=== PATIENT | female | born 2000 | race Caucasian/White ===

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

== ENCOUNTER 2022-01-14 08:34 | Emergency (ER) | payer BC, OTHER ==
[~2022-01-14] VITALS: Ht 157.5 cm; Wt 78.0 kg
[2022-01-14] MEDS ORDERED: TRAZ-252 (09:10)
[2022-01-14] MEDS ORDERED: ONDA4TAB6 (09:10)
[2022-01-14] MEDS ORDERED: PRAZ1CAP (09:10)
[2022-01-14] MEDS ORDERED: LEXA1TAB (09:10)
[2022-01-14 10:09] LABS: BASO # 0.1 10^3/uL (0.0-0.2); BASO % 0.7 % (0.0-1.0); EOS # 0.1 10^3/uL (0.0-0.5); EOS % 1.7 % (0.0-3.0); HEMATOCRIT 45.1 % (36.0-47.0); LYMPH # 1.8 10^3/uL (1.5-5.0); LYMPH % 26.8 % (24.0-44.0); MEAN CORPUSCULAR HEMOGLOBIN 29.6 pg (27.0-33.0); MEAN CORPUSCULAR HGB CONC 33.3 g/dl (32.0-36.5); MONO # 0.6 10^3/uL (0.0-0.8); MONO % 8.2 % (2.0-8.0); NEUTROPHILS # 4.3 10^3/uL (1.5-8.5); NEUTROPHILS % 62.3 % (36.0-66.0); PLATELET COUNT, AUTOMATED 292 10^3/uL (150-450); RED BLOOD COUNT 5.07 10^6/uL (4.00-5.40); WHITE BLOOD COUNT 6.9 10^3/uL (4.0-10.0)
[2022-01-14 10:53] LABS: ALBUMIN 4.1 GM/DL (3.2-5.2); ALT/SGPT 21 U/L (12-78); BILIRUBIN,DIRECT 0.2 MG/DL (0.0-0.2); BILIRUBIN,TOTAL 0.5 MG/DL (0.2-1.0); BLOOD UREA NITROGEN 13 MG/DL (7-18); CALCIUM LEVEL 9.3 MG/DL (8.5-10.1); CARBON DIOXIDE LEVEL 25 MEQ/L (21-32); CHLORIDE LEVEL 109 MEQ/L (98-107); CREATININE FOR GFR 0.67 MG/DL (0.55-1.30); GLUCOSE, FASTING 81 MG/DL (70-100); LIPASE 98 U/L (73-393); POTASSIUM SERUM 4.4 MEQ/L (3.5-5.1); SODIUM LEVEL 141 MEQ/L (136-145); TOTAL PROTEIN 7.4 GM/DL (6.4-8.2)
[2022-01-14] MEDS ORDERED: ONDANSETRON 4MG ORAL DISINTEGRATING TAB SL PRN (12:00)
[2022-01-14 13:06] VITALS: BP 120/73
[2022-01-14] MEDS ORDERED: ONDA4TAB6 PO (13:30)
== END 2022-01-14 13:55 | disposition home or self-care (01) ==
LOC: M ED 08:34
DX: R11.2 Nausea with vomiting, unspecified (principal); R19.7 Diarrhea, unspecified; Z88.0 Allergy status to penicillin

== ENCOUNTER → 2022-03-05 | Outpatient (REF) | payer BC, OTHER ==
[~2022-03-05] MED LIST: LEXA1TAB; ONDA4TAB6; ONDA4TAB6 PO; PRAZ1CAP; TRAZ-252
== END ==
LOC: M LAB REF 16:21
PROVIDERS: ATTEND Nurse Practitioner Family
DX: J02.9 Acute pharyngitis, unspecified (principal)

== ENCOUNTER 2022-05-13 11:14 | Emergency (ER) | payer BC, OTHER ==
[~2022-05-13] VITALS: Ht 157.5 cm; Wt 71.8 kg
[2022-05-13 11:14] VITALS: BP 134/86
[~2022-05-13 11:14] MED LIST changes: -PRAZ1CAP; +PRAZ1CAP PO; -TRAZ-252; +TRAZ-252 PO
[2022-05-13] MEDS ORDERED: SERT50TA29 (11:19)
[2022-05-13 13:25] LABS: BASO % 0.6 % (0.0-1.0); EOS # 0.1 10^3/uL (0.0-0.5); EOS % 1.6 % (0.0-3.0); HEMOGLOBIN 14.3 g/dl (12.0-15.5); LYMPH % 39.5 % (24.0-44.0); MEAN CORPUSCULAR HEMOGLOBIN 29.5 pg (27.0-33.0); MEAN CORPUSCULAR HGB CONC 32.5 g/dl (32.0-36.5); MEAN CORPUSCULAR VOLUME 90.9 fl (80.0-96.0); MONO # 0.5 10^3/uL (0.0-0.8); MONO % 8.8 % (2.0-8.0); NEUTROPHILS # 2.5 10^3/uL (1.5-8.5); NEUTROPHILS % 49.3 % (36.0-66.0); PLATELET COUNT, AUTOMATED 265 10^3/uL (150-450); RED BLOOD COUNT 4.84 10^6/uL (4.00-5.40); WHITE BLOOD COUNT 5.1 10^3/uL (4.0-10.0)
[2022-05-13 13:50] LABS: ALBUMIN 3.8 GM/DL (3.2-5.2); ALT/SGPT 19 U/L (12-78); BILIRUBIN,DIRECT 0.1 MG/DL (0.0-0.2); BILIRUBIN,TOTAL 0.6 MG/DL (0.2-1.0); BLOOD UREA NITROGEN 9 MG/DL (7-18); CALCIUM LEVEL 8.9 MG/DL (8.5-10.1); CARBON DIOXIDE LEVEL 26 MEQ/L (21-32); CHLORIDE LEVEL 108 MEQ/L (98-107); GLUCOSE, FASTING 84 MG/DL (70-100); LIPASE 109 U/L (73-393); POTASSIUM SERUM 4.3 MEQ/L (3.5-5.1); SODIUM LEVEL 140 MEQ/L (136-145); TOTAL PROTEIN 6.7 GM/DL (6.4-8.2)
[2022-05-13] MEDS ORDERED: ISOVUE-370 76% 100ML VIAL As Ordered ONE (15:12)
[2022-05-13] MEDS ORDERED: KETOROLAC 30 MG/ML 1ML VIAL IV ONE (15:35)
[2022-05-13 16:07] LABS: GC DNA AMPLIFICATION NEGATIVE (NEGATIVE)
[2022-05-13] MEDS ORDERED: IBUP-1022 PO (16:07)
[2022-05-13] MEDS ORDERED: VITAD1000T PO (16:07)
[2022-05-13] MEDS ORDERED: SERT25TA21 PO (16:07)
[2022-05-13] MEDS ORDERED: HOME MED LIST COMPLETE! XX SCH (16:10)
== END 2022-05-13 16:44 | disposition home or self-care (01) ==
LOC: M ED 11:14
DX: N83.291 Other ovarian cyst, right side (principal); Z88.0 Allergy status to penicillin
CPT/HCPCS: 74177; 76830; 76856; 80048; 80076; 81002; 83690; 84702; 85025; 87661; 87810; 87850; 93976; 96374; 99283; J1885

== ENCOUNTER 2022-06-02 18:39 | Emergency (ER) | payer BC, OTHER ==
[~2022-06-02] VITALS: Ht 157.5 cm; Wt 71.8 kg
[~2022-06-02 18:39] MED LIST changes: +IBUP-1022 PO; +SERT25TA21 PO; +SERT50TA29; +VITAD1000T PO
[2022-06-02 19:31] LABS: BASO % 0.5 % (0.0-1.0); EOS # 0.1 10^3/uL (0.0-0.5); EOS % 1.3 % (0.0-3.0); HEMATOCRIT 43.1 % (36.0-47.0); HEMOGLOBIN 14.2 g/dl (12.0-15.5); LYMPH # 1.8 10^3/uL (1.5-5.0); MEAN CORPUSCULAR HEMOGLOBIN 29.6 pg (27.0-33.0); MEAN CORPUSCULAR HGB CONC 32.9 g/dl (32.0-36.5); MONO # 0.5 10^3/uL (0.0-0.8); MONO % 7.1 % (2.0-8.0); NEUTROPHILS # 5.1 10^3/uL (1.5-8.5); NEUTROPHILS % 66.8 % (36.0-66.0); PLATELET COUNT, AUTOMATED 276 10^3/uL (150-450); RED BLOOD COUNT 4.79 10^6/uL (4.00-5.40); WHITE BLOOD COUNT 7.6 10^3/uL (4.0-10.0)
[2022-06-02 19:59] LABS: ALT/SGPT 10 U/L (7.0-40); BILIRUBIN,DIRECT < 0.1 MG/DL (<0.4); BILIRUBIN,TOTAL 0.4 MG/DL (0.3-1.2); BLOOD UREA NITROGEN 11 MG/DL (9-23); CALCIUM LEVEL 9.2 MG/DL (8.5-10.1); CARBON DIOXIDE LEVEL 25 MMOL/L (20-31); CHLORIDE LEVEL 105 MMOL/L (98-107); CREATININE FOR GFR 0.87 MG/DL (0.55-1.30); GLUCOSE, FASTING 89 MG/DL (60-100); LIPASE 32 U/L (12-53); POTASSIUM SERUM 4.5 MMOL/L (3.5-5.1); SODIUM LEVEL 139 MMOL/L (136-145)
[2022-06-03] MEDS ORDERED: GI COCKTAIL 50ML BTL(HYOSCYAMINE/MAALOX/LIDOCAINE VISCOUS)(1:3:1) PO ONE (02:45)
[2022-06-03 02:57] LABS: HCG, SERUM QUALITATIVE NEGATIVE (NEGATIVE)
[2022-06-03] MEDS ORDERED: MIRA3350 PO (04:24)
[2022-06-03 04:29] VITALS: BP 120/72
== END 2022-06-03 04:36 | disposition home or self-care (01) ==
LOC: M ED 18:39
DX: K59.00 Constipation, unspecified (principal); F32.A Depression, unspecified; Z79.899 Other long term (current) drug therapy; Z88.0 Allergy status to penicillin

== ENCOUNTER 2022-08-05 23:16 | Emergency (ER) | payer BC, OTHER, SELFPAY ==
[~2022-08-05] VITALS: Ht 157.5 cm; Wt 71.5 kg
[~2022-08-05 23:16] MED LIST changes: +MIRA3350 PO
[2022-08-05 23:20] VITALS: BP 127/87
== END 2022-08-06 03:46 | disposition left against medical advice (07) ==
LOC: M ED 23:16
DX: Z53.21 Procedure and treatment not carried out due to patient leaving prior to being seen by health care provider (principal)

== ENCOUNTER 2022-11-27 00:29 | Emergency (ER) | payer BC, OTHER ==
[~2022-11-27] VITALS: Ht 157.5 cm; Wt 70.9 kg
[2022-11-27] MEDS ORDERED: NS 1,000 ML IV ONE (07:50)
[2022-11-27] MEDS ORDERED: ONDANSETRON 4MG 2ML VIAL IV ONE (07:50)
[2022-11-27] MEDS ORDERED: KETOROLAC 30 MG/ML 1ML VIAL IV ONE (07:50)
[2022-11-27 08:55] LABS: BASO % 0.2 % (0.0-1.0); EOS % 0.1 % (0.0-3.0); HEMATOCRIT 43.1 % (36.0-47.0); HEMOGLOBIN 14.6 g/dl (12.0-15.5); LYMPH # 0.5 10^3/uL (1.5-5.0); LYMPH % 4.8 % (24.0-44.0); MEAN CORPUSCULAR HEMOGLOBIN 30.5 pg (27.0-33.0); MEAN CORPUSCULAR HGB CONC 33.9 g/dl (32.0-36.5); MEAN CORPUSCULAR VOLUME 90.2 fl (80.0-96.0); MONO # 0.5 10^3/uL (0.0-0.8); MONO % 5.2 % (2.0-8.0); NEUTROPHILS # 8.9 10^3/uL (1.5-8.5); NEUTROPHILS % 89.4 % (36.0-66.0); PLATELET COUNT, AUTOMATED 269 10^3/uL (150-450); RED BLOOD COUNT 4.78 10^6/uL (4.00-5.40)
[2022-11-27 09:18] LABS: LIPASE 23 U/L (12-53)
[2022-11-27 09:19] LABS: ALBUMIN 3.5 G/DL (3.2-5.2); ALKALINE PHOSPHATASE 58 U/L (46-116); ALT/SGPT 15 U/L (7.0-40); AST/SGOT 12 U/L (<34); BILIRUBIN,TOTAL 0.8 MG/DL (0.3-1.2); BLOOD UREA NITROGEN 19 MG/DL (9-23); CALCIUM LEVEL 8.4 MG/DL (8.5-10.1); CARBON DIOXIDE LEVEL 24 MMOL/L (20-31); CHLORIDE LEVEL 105 MMOL/L (98-107); CREATININE FOR GFR 0.64 MG/DL (0.55-1.30); GLUCOSE, FASTING 93 MG/DL (60-100); POTASSIUM SERUM 3.8 MMOL/L (3.5-5.1); SODIUM LEVEL 139 MMOL/L (136-145); TOTAL PROTEIN 6.2 G/DL (5.7-8.2)
[2022-11-27] MEDS ORDERED: ONDA4TAB6 PO (10:35)
[2022-11-27 10:45] VITALS: BP 108/58
== END 2022-11-27 10:54 | disposition home or self-care (01) ==
LOC: M ED 00:29
DX: R10.84 Generalized abdominal pain (principal); R11.2 Nausea with vomiting, unspecified; R19.7 Diarrhea, unspecified; R55 Syncope and collapse; N83.209 Unspecified ovarian cyst, unspecified side; F17.200 Nicotine dependence, unspecified, uncomplicated; Z88.0 Allergy status to penicillin
CPT/HCPCS: 74021; 80053; 83690; 84702; 85025; 96374; 96375; 99284; J1885; J2405

== ENCOUNTER 2023-01-05 04:55 | Emergency (ER) | payer BC, OTHER ==
[2023-01-05 06:01] LABS: HEMATOCRIT 42.9 % (36.0-47.0); HEMOGLOBIN 14.5 g/dl (12.0-15.5); MEAN CORPUSCULAR HEMOGLOBIN 30.6 pg (27.0-33.0); MEAN CORPUSCULAR HGB CONC 33.8 g/dl (32.0-36.5); MEAN CORPUSCULAR VOLUME 90.5 fl (80.0-96.0); PLATELET COUNT, AUTOMATED 293 10^3/uL (150-450); RED BLOOD COUNT 4.74 10^6/uL (4.00-5.40); WHITE BLOOD COUNT 8.6 10^3/uL (4.0-10.0)
[2023-01-05 06:18] LABS: ETHYL ALCOHOL (ETHANOL) < 0.003 % (0.000-0.010)
[2023-01-05 06:19] LABS: SALICYLATE LEVEL 3.8 MG/DL (<30)
[2023-01-05 06:20] LABS: ACETAMINOPHEN LEVEL < 2.0 UG/ML (10.0-20.0); ALBUMIN 4.3 G/DL (3.2-5.2); ALKALINE PHOSPHATASE 65 U/L (46-116); ALT/SGPT 17 U/L (7.0-40); AST/SGOT 12 U/L (<34); BILIRUBIN,DIRECT 0.2 MG/DL (<0.4); BILIRUBIN,TOTAL 0.7 MG/DL (0.3-1.2); BLOOD UREA NITROGEN 10 MG/DL (9-23); CALCIUM LEVEL 8.9 MG/DL (8.5-10.1); CARBON DIOXIDE LEVEL 23 MMOL/L (20-31); CHLORIDE LEVEL 108 MMOL/L (98-107); CREATININE FOR GFR 0.65 MG/DL (0.55-1.30); GLUCOSE, FASTING 95 MG/DL (60-100); POTASSIUM SERUM 3.9 MMOL/L (3.5-5.1); SODIUM LEVEL 141 MMOL/L (136-145); TOTAL PROTEIN 6.9 G/DL (5.7-8.2)
[2023-01-05 06:22] LABS: THYROID STIMULATING HORMONE 0.667 uIU/ML (0.48-4.17)
[2023-01-05 06:23] LABS: HCG, SERUM QUALITATIVE NEGATIVE (NEGATIVE)
[2023-01-05] MEDS ORDERED: HOME MED LIST COMPLETE! XX SCH (07:00)
[2023-01-05 09:04] LABS: AMPHETAMINES LEVEL URINE NEGATIVE (NEGATIVE)
[2023-01-05 09:05] LABS: BARBITURATES URINE NEGATIVE (NEGATIVE); BENZODIAZEPINES URINE NEGATIVE (NEGATIVE); COCAINE METABOLITE URINE NEGATIVE (NEGATIVE); METHADONE URINE NEGATIVE (NEGATIVE); OPIATES URINE NEGATIVE (NEGATIVE); PHENCYCLIDINE URINE NEGATIVE (NEGATIVE)
[2023-01-05 09:10] LABS: CANNABINOIDS URINE POSITIVE (NEGATIVE)
[2023-01-05 15:42] VITALS: BP 118/62; TEMP 98.6; O2SAT 100
== END 2023-01-05 15:44 | disposition home or self-care (01) ==
LOC: M ED 04:55 → EEVIPCON 04:55 → M ED 15:44
DX: F32.A Depression, unspecified (principal); F17.200 Nicotine dependence, unspecified, uncomplicated; Z91.51 Personal history of suicidal behavior

== ENCOUNTER 2024-03-02 17:22 | Emergency (ER) | payer BC, OTHER ==
[~2024-03-02 17:22] MED LIST changes: +ONDA-282; +ONDA-282 PO; -ONDA4TAB6; -ONDA4TAB6 PO
[2024-03-02 17:40] VITALS: BP 120/68; TEMP 97.8; O2SAT 100
[2024-03-02 19:21] LABS: HEMATOCRIT 45.6 % (36.0-47.0); HEMOGLOBIN 15.1 g/dl (12.0-15.5); MEAN CORPUSCULAR HEMOGLOBIN 30.3 pg (27.0-33.0); MEAN CORPUSCULAR HGB CONC 33.1 g/dl (32.0-36.5); MEAN CORPUSCULAR VOLUME 91.6 fl (80.0-96.0); PLATELET COUNT, AUTOMATED 292 10^3/uL (150-450); RED BLOOD COUNT 4.98 10^6/uL (4.00-5.40); WHITE BLOOD COUNT 9.6 10^3/uL (4.0-10.0)
[2024-03-02 19:44] LABS: ETHYL ALCOHOL (ETHANOL) < 0.003 % (0.000-0.010)
[2024-03-02 19:46] LABS: ALBUMIN 4.3 G/DL (3.2-5.2); ALKALINE PHOSPHATASE 70 U/L (46-116); ALT/SGPT 18 U/L (7.0-40); AST/SGOT 12 U/L (<34); BILIRUBIN,DIRECT 0.2 MG/DL (<0.4); BILIRUBIN,TOTAL 0.8 MG/DL (0.3-1.2); BLOOD UREA NITROGEN 12 MG/DL (9-23); CALCIUM LEVEL 9.3 MG/DL (8.5-10.1); CARBON DIOXIDE LEVEL 26 MMOL/L (20-31); CHLORIDE LEVEL 106 MMOL/L (98-107); CREATININE FOR GFR 0.73 MG/DL (0.55-1.30); GLOMERULAR FILTRATION RATE > 60.0 (>60); GLUCOSE, FASTING 82 MG/DL (60-100); POTASSIUM SERUM 4.3 MMOL/L (3.5-5.1); SALICYLATE LEVEL < 3.0 MG/DL (<30); SODIUM LEVEL 138 MMOL/L (136-145); TOTAL PROTEIN 7.3 G/DL (5.7-8.2)
[2024-03-02 19:48] LABS: THYROID STIMULATING HORMONE 0.809 uIU/ML (0.55-4.78)
[2024-03-02 19:56] LABS: HCG, SERUM QUALITATIVE NEGATIVE (NEGATIVE)
== END 2024-03-02 20:52 | disposition home or self-care (01) ==
LOC: M ED 17:22
DX: F41.9 Anxiety disorder, unspecified (principal); F32.A Depression, unspecified; F17.290 Nicotine dependence, other tobacco product, uncomplicated; Z88.0 Allergy status to penicillin

== ENCOUNTER → 2024-07-10 | Outpatient (REF) | payer BC, OTHER ==
[2024-07-10 18:12] LABS: Trichomonas vaginalis (AMP) NOT DETECTED (NEGATIVE)
[2024-07-10 18:18] LABS: ALBUMIN 3.9 G/DL (3.2-5.2); ALKALINE PHOSPHATASE 63 U/L (35-104); ALT/SGPT 10 U/L (7.0-40); AST/SGOT 8 U/L (<34); BILIRUBIN,TOTAL 0.5 MG/DL (0.3-1.2); BLOOD UREA NITROGEN 8 MG/DL (9-23); CALCIUM LEVEL 9.1 MG/DL (8.5-10.1); CARBON DIOXIDE LEVEL 26 MMOL/L (20-31); CHLORIDE LEVEL 108 MMOL/L (98-107); CHOLESTEROL LEVEL 138 MG/DL (<200); CHOLESTEROL RISK RATIO 2.49 (<5); CREATININE FOR GFR 0.66 MG/DL (0.55-1.30); GLOMERULAR FILTRATION RATE > 60.0 (>60); GLUCOSE, FASTING 116 MG/DL (60-100); HDL CHOLESTEROL 55.4 MG/DL (>40); LDL CHOLESTEROL 73.8 MG/DL (<100); NON-HDL-C 82.6 MG/DL; POTASSIUM SERUM 3.9 MMOL/L (3.5-5.1); SODIUM LEVEL 141 MMOL/L (136-145); TOTAL PROTEIN 6.6 G/DL (5.7-8.2); TRIGLYCERIDES LEVEL 44 MG/DL (<150)
[2024-07-10 18:19] LABS: THYROID STIMULATING HORMONE 1.149 uIU/ML (0.55-4.78)
[2024-07-10 18:37] LABS: GC DNA AMPLIFICATION NEGATIVE (NEGATIVE)
[2024-07-10 19:04] LABS: HEMOGLOBIN A1c 4.9 % (4.0-6.0)
== END ==
LOC: M LAB REF 16:05
PROVIDERS: ATTEND Physician Assistant
DX: Z11.9 Encounter for screening for infectious and parasitic diseases, unspecified (principal); E66.9 Obesity, unspecified; E55.9 Vitamin D deficiency, unspecified

== ENCOUNTER 2024-11-06 09:33 | Emergency (ER) | payer BC, OTHER ==
[~2024-11-06] VITALS: Ht 157.5 cm; Wt 75.7 kg
[2024-11-06] MEDS ORDERED: PROZ20CA11 PO (09:50)
[2024-11-06] MEDS ORDERED: TRAZ-252 PO (09:50)
[2024-11-06] MEDS ORDERED: MULT-90 PO (09:51)
[2024-11-06 10:33] LABS: BASO # 0.1 10^3/uL (0.0-0.2); BASO % 0.7 % (0.0-1.0); EOS # 0.1 10^3/uL (0.0-0.5); EOS % 1.1 % (0.0-3.0); HEMATOCRIT 44.2 % (36.0-47.0); HEMOGLOBIN 14.6 g/dl (12.0-15.5); LYMPH # 2.6 10^3/uL (1.5-5.0); MEAN CORPUSCULAR VOLUME 90.9 fl (80.0-96.0); MONO # 0.6 10^3/uL (0.0-0.8); MONO % 8.5 % (2.0-8.0); NEUTROPHILS % 54.6 % (36.0-66.0); PLATELET COUNT, AUTOMATED 317 10^3/uL (150-450); RED BLOOD COUNT 4.86 10^6/uL (4.00-5.40); WHITE BLOOD COUNT 7.3 10^3/uL (4.0-10.0)
[2024-11-06 11:05] LABS: LIPASE 31 U/L (12-53)
[2024-11-06 11:07] LABS: ALKALINE PHOSPHATASE 72 U/L (35-104); ALT/SGPT 18 U/L (7.0-40); AST/SGOT 16 U/L (<34); BILIRUBIN,DIRECT 0.2 MG/DL (<0.4); BILIRUBIN,TOTAL 0.7 MG/DL (0.3-1.2); BLOOD UREA NITROGEN 15 MG/DL (9-23); CALCIUM LEVEL 9.6 MG/DL (8.5-10.1); CARBON DIOXIDE LEVEL 26 MMOL/L (20-31); CHLORIDE LEVEL 106 MMOL/L (98-107); CREATININE FOR GFR 0.69 MG/DL (0.55-1.30); GLOMERULAR FILTRATION RATE > 90.0 (>60); GLUCOSE, FASTING 83 MG/DL (60-100); POTASSIUM SERUM 4.7 MMOL/L (3.5-5.1); SODIUM LEVEL 141 MMOL/L (136-145)
[2024-11-06] MEDS: ONDANSETRON 4MG 2ML VIAL IV ONE (13:25)
[2024-11-06] MEDS: METOCLOPRAMIDE INJ 10MG/2ML VIAL IV ONE (13:51)
[2024-11-06] MEDS ORDERED: ISOVUE-370 76% 100ML VIAL As Ordered ONE (14:30)
[2024-11-06] MEDS: KETOROLAC 30 MG/ML 1ML VIAL IV ONE (14:46)
[2024-11-06 15:16] VITALS: BP 109/71; TEMP 97.8; O2SAT 100
[2024-11-06] MEDS ORDERED: METR-265 PO (15:40)
[2024-11-06] MEDS ORDERED: SENN-52 PO (15:40)
[2024-11-06] MEDS: MAGNESIUM CITRATE 300ML BTL PO ONE (15:56)
== END 2024-11-06 16:20 | disposition home or self-care (01) ==
LOC: M ED 09:33 → EDBD 09:33 → M ED 16:20
DX: K59.00 Constipation, unspecified (principal); K52.9 Noninfective gastroenteritis and colitis, unspecified; Z88.0 Allergy status to penicillin
CPT/HCPCS: 74177; 80048; 80076; 83690; 84702; 85025; 93005; 96374; 96375; 99284; J1885; J2765; Q9967